=== PATIENT | female | born 1995 | race Caucasian/White ===

== ENCOUNTER 2018-10-09 11:27 | Emergency (ER) | payer OTHER ==
[~2018-10-09 11:27] MED LIST: DICY-42 PO; ONDA4TAB97 PO; PROM-110 PO
--- NOTE | 2018-10-09 12:10 | ER Report ---
History and Physical Time Seen By MD: 12:11 HPI/ROS 23 y/o female who has been seen in the ED multiple times for n/v. She was sent to the emergency department from urgent care for intractable nausea and vomiting. The symptoms have been ongoing for 2-3 days. She is unable to take by mouth. She reports abdominal pain as well. No fever chills. No travel. Denies any drug use and reports her only medication is Nexium. No dysuria or hematuria. Remainder of the 14 system rev: Yes Allergies: Coded Allergies: No Known Drug Allergies (Unverified , 10/09/18) Home Meds Reported Medications Esomeprazole Magnesium (Nexium 24Hr) 20 Mg Capsule. 10/09/18 Discontinued Scripts Promethazine Hcl (PROMETHAZINE HCL) 25 Mg Tablet, 25 MG PO Q8H PRN for NAUSEA/VOMITING, #20 TAB 0 Refills Prov:YUSEF DICKENS MD 02/24/17 Dicyclomine Hcl (BENTYL) 10 Mg Capsule, 20 MG PO QID for diarrhea, #20 CAPSULE 0 Refills Prov:SYKLER SCHRADER MD 02/19/17 Ondansetron Hcl (ZOFRAN) 4 Mg Tablet, 4 MG PO Q8H for Nausea, #15 TAB 0 Refills Prov:SKYLER SCHRADER MD 02/19/17 Reviewed Nurses Notes: Yes Old Medical Records Reviewed: Yes Hx Smoking: No Exposure to Second Hand Smoke?: No Hx Substance Use Disorder: No Hx Alcohol Use: No Constitutional Vital Sign - Last 24 Hours 10/09/18 10/09/18 10/09/18 10/09/18 13:21 13:24 13:30 13:45 Temp 97.6 Pulse 69 70 65 Resp 14 B/P (MAP) 125/79 125/79 (94) 94/64 (74) 97/65 (76) Pulse Ox 98 94 96 O2 Delivery Room Air 10/09/18 10/09/18 10/09/18 10/09/18 14:00 14:05 14:15 14:20 Pulse ??? 73 72 B/P (MAP) 125/74 (91) 122/62 (82) Pulse Ox 87 97 10/09/18 10/09/18 10/09/18 10/09/18 14:30 14:35 14:45 14:50 Pulse 81 72 B/P (MAP) 111/80 (90) 118/79 (92) Pulse Ox 90 94 10/09/18 10/09/18 10/09/18 10/09/18 15:00 15:05 15:15 15:20 Pulse ? B/P (MAP) 122/75 (91) 119/70 (86) 10/09/18 10/09/18 10/09/18 10/09/18 15:30 15:35 15:45 15:50 Pulse ? B/P (MAP) 113/86 (95) 114/84 (94) Physical Exam General Appearance: The patient is alert, has no immediate need for airway protection and no current signs of toxicity. Eyes: Pupils equal and round no injection. Respiratory: Chest is non tender, lungs are clear to auscultation. Cardiac: regular rate and rhythm Gastrointestinal: Abdomen is soft with mild TTP at the RLQ, no masses, bowel sounds normal. Neck: Neck is supple and non tender. Extremities have full range of motion and are non tender. Skin: No rashes or lesions. DIFFERENTIAL DIAGNOSIS: After history and physical exam differential diagnosis was considered for abdominal pain including but not limited to appendicitis, cholecystitis, gastritis,ectopic , and urinary tract infection. Medical Decision Making Data Points Result Diagram: 10/09/18 1400 10/09/18 1400 Laboratory Hematology Test 10/09/18 11:52 10/09/18 14:00 10/09/18 15:23 Urine Color Lizeth Urine Clarity Slightly-cloudy Urine pH 6.0 pH (4.8-9.5) Urine Specific Hensel 1.029 Urine Protein 100 mg/dL (NEGATIVE) Urine Glucose (UA) Negative mg/dL (NEGATIVE) Urine Ketones 80 mg/dL (NEGATIVE) Urine Blood Negative (NEGATIVE) Urine Nitrite Negative (NEGATIVE) Urine Bilirubin Negative (NEGATIVE) Urine Urobilinogen 2.0 mg/dL (0.2-1.9) Urine Leukocyte Esterase Small (NEGATIVE) Urine RBC 12 /HPF (0-2/HPF) Urine WBC 4 /HPF (0-5/HPF) Urine Squamous Epithelial Cells Many /LPF (</=FEW) Urine Transitional Epithelial Cells Few /LPF (NONE-FEW) Urine Bacteria Many /HPF (NONE-FEW) Urine Mucus Few /HPF (NONE-FEW) Urine HCG, Qualitative Negative (NEGATIVE) Urine Opiates Screen Negative Urine Barbiturates Screen Negative Ur Tricyclic Antidepressants Screen Positive Urine Phencyclidine Screen Negative Urine Amphetamines Screen Positive Urine Benzodiazepines Screen Negative Urine Cocaine Screen Negative Urine Cannabinoids Screen Positive Red Blood Count 5.69 M/uL (4.17-5.56) Mean Corpuscular Volume 92.7 fL (80.0-96.0) Mean Corpuscular Hemoglobin 31.8 pg (26.0-33.0) Mean Corpuscular Hemoglobin Concent 34.3 g/dL (32.0-36.0) Red Cell Distribution Width 12.0 % (11.5-14.5) Mean Platelet Volume 9.0 fL (7.2-11.1) Neutrophils (%) (Auto) 91.2 % (39.4-72.5) Lymphocytes (%) (Auto) 5.6 % (17.6-49.6) Monocytes (%) (Auto) 2.6 % (4.1-12.4) Eosinophils (%) (Auto) 0.0 % (0.4-6.7) Basophils (%) (Auto) 0.6 % (0.3-1.4) Nucleated RBC Relative Count (auto) 0.1 /100WBC Neutrophils # (Auto) 13.4 K/uL (2.0-7.4) Lymphocytes # (Auto) 0.8 K/uL (1.3-3.6) Monocytes # (Auto) 0.4 K/uL (0.3-1.0) Eosinophils # (Auto) 0.0 K/uL (0.0-0.5) Basophils # (Auto) 0.1 K/uL (0.0-0.1) Nucleated RBC Absolute Count (auto) 0.02 K/uL Sodium Level 141 mmol/L (137-145) Potassium Level 3.9 mmol/L (3.5-5.0) Chloride Level 107 mmol/L (98-107) Carbon Dioxide Level 18 mmol/L (22-31) Blood Urea Nitrogen 18 mg/dl (7-18) Creatinine 0.70 mg/dl (0.52-1.04) Glomerular Filtration Rate Calc > 60.0 Random Glucose 121 mg/dl (75-110) Calcium Level 10.6 mg/dl (8.4-10.2) Total Bilirubin 1.1 mg/dl (0.2-1.3) Aspartate Amino Transf (AST/SGOT) 27 U/L (0-35) Alanine Aminotransferase (ALT/SGPT) 27 U/L (0-56) Alkaline Phosphatase 74 U/L (0-126) Total Protein 8.8 g/dl (6.3-8.2) Albumin 5.3 g/dl (3.5-5.0) Influenza Virus Type A (PCR) Negative (NEGATIVE) Influenza Virus Type B (PCR) Negative (NEGATIVE) Chemistry Test 10/09/18 11:52 10/09/18 14:00 10/09/18 15:23 Urine Color Lizeth Urine Clarity Slightly-cloudy Urine pH 6.0 pH (4.8-9.5) Urine Specific Hensel 1.029 Urine Protein 100 mg/dL (NEGATIVE) Urine Glucose (UA) Negative mg/dL (NEGATIVE) Urine Ketones 80 mg/dL (NEGATIVE) Urine Blood Negative (NEGATIVE) Urine Nitrite Negative (NEGATIVE) Urine Bilirubin Negative (NEGATIVE) Urine Urobilinogen 2.0 mg/dL (0.2-1.9) Urine Leukocyte Esterase Small (NEGATIVE) Urine RBC 12 /HPF (0-2/HPF) Urine WBC 4 /HPF (0-5/HPF) Urine Squamous Epithelial Cells Many /LPF (</=FEW) Urine Transitional Epithelial Cells Few /LPF (NONE-FEW) Urine Bacteria Many /HPF (NONE-FEW) Urine Mucus Few /HPF (NONE-FEW) Urine HCG, Qualitative Negative (NEGATIVE) Urine Opiates Screen Negative Urine Barbiturates Screen Negative Ur Tricyclic Antidepressants Screen Positive Urine Phencyclidine Screen Negative Urine Amphetamines Screen Positive Urine Benzodiazepines Screen Negative Urine Cocaine Screen Negative Urine Cannabinoids Screen Positive White Blood Count 14.6 k/uL (4.5-11.0) Red Blood Count 5.69 M/uL (4.17-5.56) Hemoglobin 18.1 g/dL (12.0-16.0) Hematocrit 52.8 % (34.0-47.0) Mean Corpuscular Volume 92.7 fL (80.0-96.0) Mean Corpuscular Hemoglobin 31.8 pg (26.0-33.0) Mean Corpuscular Hemoglobin Concent 34.3 g/dL (32.0-36.0) Red Cell Distribution Width 12.0 % (11.5-14.5) Platelet Count 297 K/uL (150-450) Mean Platelet Volume 9.0 fL (7.2-11.1) Neutrophils (%) (Auto) 91.2 % (39.4-72.5) Lymphocytes (%) (Auto) 5.6 % (17.6-49.6) Monocytes (%) (Auto) 2.6 % (4.1-12.4) Eosinophils (%) (Auto) 0.0 % (0.4-6.7) Basophils (%) (Auto) 0.6 % (0.3-1.4) Nucleated RBC Relative Count (auto) 0.1 /100WBC Neutrophils # (Auto) 13.4 K/uL (2.0-7.4) Lymphocytes # (Auto) 0.8 K/uL (1.3-3.6) Monocytes # (Auto) 0.4 K/uL (0.3-1.0) Eosinophils # (Auto) 0.0 K/uL (0.0-0.5) Basophils # (Auto) 0.1 K/uL (0.0-0.1) Nucleated RBC Absolute Count (auto) 0.02 K/uL Glomerular Filtration Rate Calc > 60.0 Calcium Level 10.6 mg/dl (8.4-10.2) Total Bilirubin 1.1 mg/dl (0.2-1.3) Aspartate Amino Transf (AST/SGOT) 27 U/L (0-35) Alanine Aminotransferase (ALT/SGPT) 27 U/L (0-56) Alkaline Phosphatase 74 U/L (0-126) Total Protein 8.8 g/dl (6.3-8.2) Albumin 5.3 g/dl (3.5-5.0) Influenza Virus Type A (PCR) Negative (NEGATIVE) Influenza Virus Type B (PCR) Negative (NEGATIVE) Toxicology Test 10/09/18 11:52 Urine Opiates Screen Negative Urine Barbiturates Screen Negative Ur Tricyclic Antidepressants Screen Positive Urine Phencyclidine Screen Negative Urine Amphetamines Screen Positive Urine Benzodiazepines Screen Negative Urine Cocaine Screen Negative Urine Cannabinoids Screen Positive Urinalysis Test 10/09/18 11:52 Urine Color Lizeth Urine Clarity Slightly-cloudy Urine pH 6.0 pH (4.8-9.5) Urine Specific Hensel 1.029 Urine Protein 100 mg/dL (NEGATIVE) Urine Glucose (UA) Negative mg/dL (NEGATIVE) Urine Ketones 80 mg/dL (NEGATIVE) Urine Blood Negative (NEGATIVE) Urine Nitrite Negative (NEGATIVE) Urine Bilirubin Negative (NEGATIVE) Urine Urobilinogen 2.0 mg/dL (0.2-1.9) Urine Leukocyte Esterase Small (NEGATIVE) Urine RBC 12 /HPF (0-2/HPF) Urine WBC 4 /HPF (0-5/HPF) Urine Squamous Epithelial Cells Many /LPF (</=FEW) Urine Transitional Epithelial Cells Few /LPF (NONE-FEW) Urine Bacteria Many /HPF (NONE-FEW) Urine Mucus Few /HPF (NONE-FEW) Urine HCG, Qualitative Negative (NEGATIVE) EKG/Imaging Imaging Results: CT scan of the abdomen/pelvis was obtained. The results of the study are normal. The study was read by the radiologist. I viewed the images myself on the PACS system. ED Course/Re-evaluation ED Course Very low suspicion for appendicitis. On repeat examination the patient does not have right lower quadrant tenderness to palpation. She has diffuse and intermittent abdominal pain, at a rather benign abdominal exam. Her labs show dehydration. No evidence of DKA. She still denies drug use in spite of of the results of her urine drug screen. I think her symptoms are either related to her drug use or to a viral gastroenteritis. She received a liter of normal saline and a liter of D5 half normal saline. She is now able to take by mouth. She feels improved. I counseled her to drink plenty of fluids. I will discharge her with a prescription for Zofran. Decision to Disposition Date: Oct 09, 2018 Decision to Disposition Time: 17:19 Depart Departure Latest Vital Signs Vital Signs Date Time Temp Pulse Resp B/P (MAP) Pulse Ox O2 Delivery O2 Flow Rate FiO2 10/09/18 15:50 ??? 10/09/18 15:45 114/84 (94) 10/09/18 14:50 94 10/09/18 13:21 97.6 14 Room Air Impression: Primary Impression: Nausea & vomiting Condition: Improved Disposition: HOME OR SELF-CARE New Scripts Ondansetron Hcl (ZOFRAN) 4 Mg Tablet 4 MG PO Q4-6H for Nausea for 3 Days, #14 TAB Prov: LIZZETH RUBIN MD 10/09/18 Patient Instructions: Acute Nausea and Vomiting (ED) Problem Qualifiers Primary Impression: Nausea & vomiting Vomiting type: unspecified Vomiting Intractability: non-intractable Qualified Codes: R11.2 - Nausea with vomiting, unspecified LIZZETH RUBIN MD Oct 09, 2018 12:10
[2018-10-09] MEDS ORDERED: ONDANSETRON 4 MG ODT TABDP SL ONE (12:15)
[2018-10-09] MEDS ORDERED: ESOM20CA28 (13:24)
[2018-10-09] MEDS ORDERED: NS(*) 0.9% 1000 ML BAG 1,000 ML IV ONE (13:55)
[2018-10-09] MEDS ORDERED: METOCLOPRAMIDE 10 MG/2 ML SDV IVP ONE (13:55)
[2018-10-09 14:14] LABS: PLATELET COUNT, AUTOMATED 297 K/uL (150-450)
[2018-10-09] MEDS ORDERED: diphenhydrAMINE 50 MG/ML VIAL IVP ONE (14:50)
[2018-10-09] MEDS ORDERED: IOPAMIDOL 76% 75 ML INFUS BTL 75 ML ONE (15:05)
--- NOTE | 2018-10-09 15:39 | RADIOLOGY IMAGING REPORT ---
FACILITY: [facility] PATIENT NAME: Jamia Ortiz : 1995 MR: [id number] V: [id number] EXAM DATE: ORDERING PHYSICIAN: LIZZETH RUBIN TECHNOLOGIST: Location: [facility] [place] Patient: Jamia Ortiz : 1995 Visit/Account:[id number] Date of Sevice: 10/09/2018 ABDOMEN/PELVIS WITH CONTRAST HISTORY: Right lower quadrant pain, leukocytosis, vomiting TECHNIQUE: Following administration of IV contrast contiguous axial images acquired through the abdom en/pelvis. Coronal and sagittal reformatting also performed.Dose Lowering Technique One of the following dose optimization techniques was utilized in the performance of this exam: Autom ated exposure control; adjustment of the mA and/or kV according to the patient's size; or use of an i terative reconstruction technique. Specific details can be referenced in the facility's radiology C T exam operational policy. CONTRAST: 68 mL [id number] COMPARISON: None. FINDINGS: Visualized lung bases: Negative. Hepatobiliary: Negative. Spleen: Negative. Adrenals: Negative. Pancreas: Negative. Kidneys ureters or bladder: Negative. Genitalia: IUD is noted within the uterus GI: There Is a paucity of internal fat planes however the appendix is faintly seen does not appear gr ossly inflamed. There is some intraluminal air as opposed to fluid Vessels/spaces/nodes: Negative. Bones/soft tissues: Negative. Additional findings: None pertinent. IMPRESSION: Findings are consistent with low suspicion for acute appendicitis Report Dictated By: Kaylie Park MD at 10/09/2018 3:20 PM Report E-Signed By: Kaylie Park MD at 10/09/2018 3:34 PM WSN:[email or web address]
[2018-10-09] MEDS ORDERED: D5 1/2 NS(*) 1000 ML BAG 1,000 ML IV ONE (16:00)
[2018-10-09] MEDS ORDERED: ONDA4TAB97 PO (17:20)
== END 2018-10-09 17:38 | disposition home or self-care (01) ==
LOC: ER 13:47
DX: R11.2 Nausea with vomiting, unspecified (principal)
CPT/HCPCS: 74177; 80305; 81001; 81025; 85025; 87502; 96361; 96374; 96375; 99284; J1200; J2765; J7030; Q9967; S0119; 82040; 82247; 82310; 82374; 82435; 82565; 82947; 84075; 84132; 84155; 84295; 84450; 84460; 84520

== ENCOUNTER → 2018-12-07 | Outpatient (REF) | payer OTHER ==
[~2018-12-07] MED LIST changes: +ESOM20CA28
[2018-12-07 12:23] LABS: PLATELET COUNT, AUTOMATED 230 K/uL (150-450)
== END ==
PROVIDERS: ATTEND Family Medicine
DX: R10.9 Unspecified abdominal pain (principal); R11.10 Vomiting, unspecified
CPT/HCPCS: 82040; 82247; 82310; 82374; 82435; 82565; 82947; 84075; 84132; 84155; 84295; 84450; 84460; 84520; 85025